=== PATIENT | male | born 1970 | race Caucasian/White ===

== ENCOUNTER 2021-04-21 18:51 | Emergency (ER) | payer SELFPAY ==
[~2021-04-21 18:51] MED LIST: FLOMAX0.4 MG PO; HCTZ25 MG PO; NAPROXEN500 MG PO; NORCO 5-325 TA1 EACH PO; NORVASC5 MG PO; PHENERGAN25 M1 PO
[2021-04-21 19:57] LABS: BASOPHIL 0.3 % (0-2); EOSINOPHIL 0.8 % (0-5); HCT 43.1 % (42.0-52.0); HGB 14.8 g/dl (13.2-18.0); LYMPHOCYTE 10.6 % (15-48); MCH 31.3 pg (25.0-31.0); MCHC 34.3 g/dL (32.0-36.0); MCV 91.1 fL (78.0-100.0); MONOCYTE 8.4 % (0-12); MPV 8.1 fL (6.0-9.5); NEUTROPHIL 79.6 % (41-80); NRBC 0; PLT 261 K/uL (150-400); RBC 4.73 M/uL (4.70-6.00); RDW 11.9 % (11.5-14.0); WBC 9.4 K/uL (4.0-10.5)
[2021-04-21 20:15] LABS: ALBUMIN 2.8 g/dL (3.4-5.0); BILIRUBIN - TOTAL 0.7 mg/dL (0.2-1.0); BUN/CREAT RATIO (CALC) 11.2 RATIO; CREATININE 0.98 mg/dL (0.67-1.17); GLOBULIN (CALCULATION) 4.6 g/dL; POTASSIUM 3.4 mmol/L (3.5-5.1); TOTAL PROTEIN 7.4 g/dL (6.4-8.2)
[2021-04-21 20:21] LABS: LACTIC ACID 0.4 mmol/L (0.4-1.9)
[2021-04-21 21:04] LABS: CORONAVIRUS 2019 SARS-COV-2 NEGATIVE (NEGATIVE); INFLUENZA A NAA NEGATIVE (NEGATIVE)
[2021-04-22] MEDS ORDERED: VIBRAMYCIN100 MG PO (00:30)
[2021-04-22] MEDS ORDERED: ZESTRIL5 MG PO (00:30)
[2021-04-22] MEDS ORDERED: AZITHROMYCIN250 MG PO (00:30)
== END 2021-04-22 00:35 | disposition home or self-care (01) ==
LOC: FER 18:51
PROVIDERS: Emergency Medicine
DX: J18.9 Pneumonia, unspecified organism (principal); I10 Essential (primary) hypertension; Z20.822 Contact with and (suspected) exposure to COVID-19
CPT/HCPCS: 36415; 70450; 71045; 71275; 80053; 83605; 84145; 85025; 87040; 93005; J0780; J1200; J1885; J3490; J7030; Q9967; U0002